=== PATIENT | male | born 1935 | race Caucasian/White ===

== ENCOUNTER 2017-07-14 14:30 | Outpatient (CLI) | payer MEDICARE, OTHER | END 2017-07-14 14:31 | disposition home or self-care (01) | LOC: BICRAD 14:30 | PROVIDERS: ATTEND Neurological Surgery | DX: M47.896 Other spondylosis, lumbar region (principal) | CPT/HCPCS: 72100 ==

== ENCOUNTER 2017-07-19 11:39 | Emergency (ER) | payer MEDICARE, OTHER ==
[2017-07-19] MEDS ORDERED: HYDROcodone/Acetaminophen 5/325 mg Tablet ONE (13:33)
--- NOTE | 2017-07-19 15:52 | ULT ---
LEFT LOWER EXTREMITY VENOUS DUPLEX EXAM: Date: 07/19/17 HISTORY: Left lower extremity pain and edema, bruising of left foot. FINDINGS: Real-time color Doppler evaluation of the left lower extremity was performed from groin to calf. This includes evaluation of the common femoral, superficial and profunda femoral, saphenous, popliteal, a nd trifurcation veins. This shows patent deep venous system. There is normal compressibility and augm entation. Along the posterior and more medial aspect of the knee is a complex fluid collection, possi dereck related to a Fu's cyst. There are also some soft tissue edema changes seen within the more sup erficial soft tissues. IMPRESSION: 1. No evidence of deep venous thrombosis within the left lower extremity. 2. Complex fluid collection along the posteromedial border of the knee, possibly a Fu's cyst. Ano ther possibility is that this represents some type of evolving hematoma. POS: [facility]
== END 2017-07-19 15:04 | disposition home or self-care (01) ==
LOC: ERS 11:39
DX: M71.22 Synovial cyst of popliteal space [Baker], left knee (principal); E11.9 Type 2 diabetes mellitus without complications; I10 Essential (primary) hypertension; M19.90 Unspecified osteoarthritis, unspecified site; Z85.038 Personal history of other malignant neoplasm of large intestine; Z87.891 Personal history of nicotine dependence; Z79.4 Long term (current) use of insulin; Z79.82 Long term (current) use of aspirin; Z79.891 Long term (current) use of opiate analgesic; Z79.899 Other long term (current) drug therapy
CPT/HCPCS: 99283

== ENCOUNTER 2018-02-10 16:06 | Emergency (ER) | payer MEDICARE, OTHER ==
--- NOTE | 2018-02-10 18:17 | RAD ---
THREE VIEWS OF THE RIGHT SHOULDER: 02/10/18 COMPARISON: 12/01/11. HISTORY: Right shoulder pain for one week, no history of injury. FINDINGS: There is atherosclerotic calcifications of the aortic arch. There is degenerative changes involving t he right acromioclavicular interspace with narrowing and osteophyte formation. No widening of the cor acoclavicular interspace. No displaced fracture or evidence of dislocation. IMPRESSION: Stable degenerative changes. No acute findings. POS: [facility]
== END 2018-02-10 17:54 | disposition home or self-care (01) ==
LOC: ERS 16:06
DX: M19.011 Primary osteoarthritis, right shoulder (principal); I10 Essential (primary) hypertension; Z87.891 Personal history of nicotine dependence; Z87.442 Personal history of urinary calculi

== ENCOUNTER 2018-03-01 19:38 | Emergency (ER) | payer MEDICARE, OTHER ==
[2018-03-01] MEDS ORDERED: Sodium Chloride For Inhalation 0.9% 3 ML NEB ONE (20:03)
== END 2018-03-01 20:43 | disposition home or self-care (01) ==
LOC: SCSER 19:38
DX: J06.9 Acute upper respiratory infection, unspecified (principal); E11.9 Type 2 diabetes mellitus without complications; I10 Essential (primary) hypertension; Z87.891 Personal history of nicotine dependence; Z79.899 Other long term (current) drug therapy; Z79.82 Long term (current) use of aspirin; Z79.84 Long term (current) use of oral hypoglycemic drugs
CPT/HCPCS: 87804; 94640

== ENCOUNTER 2018-10-21 14:36 | Outpatient (CLI) | payer MEDICARE, OTHER | END 2018-10-21 14:37 | disposition home or self-care (01) | LOC: CTENTCT 14:36 | PROVIDERS: ATTEND Otolaryngology Plastic Surgery within the Head & Neck | DX: J32.9 Chronic sinusitis, unspecified (principal) | CPT/HCPCS: 70486 ==

== ENCOUNTER 2019-04-19 15:52 | Outpatient (CLI) | payer MEDICARE, OTHER ==
--- NOTE | 2019-04-19 17:01 | RAD ---
PA AND LATERAL CHEST: 04/19/19 HISTORY: Cough. Weakness. Flu-like symptoms. COMPARISON: 08/20/06 exam. Heart size appears slightly enlarged. Aorta is atherosclerotic and tortuous. The lungs are clear of i nfiltrates. Linear scarring is seen in the left base. IMPRESSION: Mild cardiomegaly. Stable chest. POS: [facility]
[2019-04-19 17:56] LABS: #Eosinphils 0.1 thou/uL (0.0-0.7); #Lymphocytes 1.3 thou/uL (1.20-3.40); #Monocytes 0.9 thou/uL (0.11-0.59); #Neutrophils 6.1 thou/uL (1.40-6.50); %Basophils 0.4 % (0.0-1.0); %Eosinophils 1.6 % (0.0-10.0); %Lymphocytes 15.7 % (21.0-51.0); %Monocytes 10.6 % (0.0-10.0); %Neutrophils 71.7 % (42.0-75.0); Hemoglobin 13.6 g/dL (14.0-18.0); Mean Corpuscular HGB CONC 32.1 g/dL (32.0-36.0); Mean Corpuscular Hemoglobin 30.2 pg (27.0-31.0); Mean Corpuscular Volume 94.1 fL (78.0-98.0); Mean Platelet Volume 8.4 fL (7.4-10.4); Platelet Count 171 thou/uL (130-400); RBC Distribution Width 12.4 % (11.5-14.5); Red Blood Cell (RBC) Count 4.49 mill/uL (4.70-6.10); White Blood Cell (WBC) Count 8.5 thou/uL (4.8-10.8)
[2019-04-19 18:04] LABS: Bacteria/HPF None Seen HPF (None Seen); Bilirubin Negative (Negative); Blood, Urine Negative (Negative); Clarity Clear (Clear); Glucose, Urine (Dipstick) Normal (Negative); Leukocyte Negative Leu/uL (Negative); Nitrite Negative (Negative); Protein, Urine (Dipstick) Negative (Neg-Trace); RBC/HPF 0-3 HPF (0-3); Squamous Epithelial 0-3 HPF (0-3); Urobilinogen Normal mg/dL (Less than 2); WBC/HPF 0-3 HPF (0-3)
[2019-04-19 18:17] LABS: ALT (SGPT) 20 U/L (8-55); AST (SGOT) 18 U/L (5-34); Albumin 4.1 g/dL (3.4-4.8); Alkaline Phosphatase 47 U/L (40-110); Anion Gap 12 mmol/L (10-20); BUN (Urea Nitrogen) 16 mg/dL (8.4-25.7); Bilirubin, Total 0.5 mg/dL (0.2-1.2); Calc. Creatinine Clearance 0 mL/min (70-130); Calcium 9.1 mg/dL (7.8-10.44); Carbon Dioxide 30 mmol/L (23-31); Chloride 108 mmol/L (98-107); Estimated GFR-MDRD 89; Globulin 2.9 g/dL (2.4-3.5); Glucose 166 mg/dL (83-110); Potassium 3.8 mmol/L (3.5-5.1); Sodium 146 mmol/L (136-145)
== END 2019-04-19 15:53 | disposition home or self-care (01) ==
LOC: SCSRAD 15:52
PROVIDERS: ATTEND Family Medicine
DX: R68.89 Other general symptoms and signs (principal); I51.7 Cardiomegaly
CPT/HCPCS: 36415; 71046; 80053; 81001; 85025; 85652

== ENCOUNTER 2019-04-29 13:03 | Outpatient (CLI) | payer MEDICARE, OTHER ==
--- NOTE | 2019-04-29 14:32 | RAD ---
Lumbar spine: 4 views INDICATIONS:Lumbar stenosis. Neurogenic claudication. COMPARISON:None FINDINGS: Mild central compression of the L1 and L2 vertebra. Disc narrowing and prominent hypertrophic spurrin g throughout. Loss of disc space at T12-L1, L1-2, L2-3 levels. Anterolisthesis, grade 1 at L4-4-5. Degenerative spine barring and facet hypertrophy at all levels. Scoliotic curvature with convexity to the right, apex L3-4. Aortic calcification and ectasia. 2 rounded calcific densities overlies the right renal outline and could potentially represent renal c alculi. Numerous postoperative changes with clips and fasteners overlying the lower abdomen. IMPRESSION: Moderate to severe degenerative changes as described.
--- NOTE | 2019-04-29 15:07 | MRI ---
MRI LUMBAR SPINE WITHOUT CONTRAST: 04/29/19 INDICATIONS: Spondylolisthesis lumbar region. Back pain. Lumbar vertebrae maintain height. Prominent degenerative disc changes are noted at L2-3 with degenera tive disc and end plate changes. Anterior osteophytes are seen at all levels of the lumbar spine. Mil d loss of disc space at T12-L1 and L1-2 spaces are also noted. There is a grade I anterolisthesis at L4-5. No definite posterior spondylolysis is seen although this is best evaluated with CT. There is e corina on STIR sequence within the superior facet of L5 at the L4-5 facet joint. At L1-2, there is annular fissure with diffuse disc bulge/protrusion flattening the thecal sac. This results in mild central canal stenosis. A L2-3, mild posterolisthesis with degenerative disc and end plate change. Broad based disc bulge fla ttens the thecal sac. Moderate facet hypertrophy. Facet hypertrophy is pronounced on the left compre ssing the anterior thecal sac on the left and displacing traversing nerve roots in the thecal sac on the left. Mild to moderate central canal stenosis as the result of these changes. Left foraminal sten osis. At L3-4, mild diffuse disc bulge. Prominent facet and ligamentous hypertrophy. Mild central canal tayler nosis. Disc osteophyte complex projects laterally to the left and may contact the exiting left nerve root. At L4-5, there is anterolisthesis. There is associated diffuse disc bulge. Prominent facet arthrosis and facet and ligamentous hypertrophy. Moderate to severe central canal stenosis. Bilateral foraminal stenosis more severe on the right. At L5-S1, mild disc bulge. No significant central canal stenosis. Mild foraminal narrowing due to hyp ertrophic change. IMPRESSION: 1. Multilevel degenerative disc changes with anterolisthesis a L4-5. There is slight posterolist hesis at L2-3. Central canal and foraminal stenosis at several levels as described above. 2. 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 There is a complex lesion involving the posterior left renal cortex which measures 1.5 cm. This should be further evaluated with CT abdomen with and withou t contrast. POS: [facility]
== END 2019-04-29 13:04 | disposition home or self-care (01) ==
LOC: BICMRI 13:03
PROVIDERS: ATTEND Neurological Surgery
DX: M43.16 Spondylolisthesis, lumbar region (principal); M48.062 Spinal stenosis, lumbar region with neurogenic claudication; M51.36 Other intervertebral disc degeneration, lumbar region
CPT/HCPCS: 72110; 72148